=== PATIENT | female | born 1980 | race Caucasian/White ===

== ENCOUNTER 2023-03-31 06:27 | Emergency (ER) | payer OTHER ==
[2023-03-31 06:36] VITALS: BMI 28.3
[2023-03-31] MEDS ORDERED: ACETAMINOPHEN 1000 MG/100 ML BAG IVPB ONE (07:19)
[2023-03-31] MEDS ORDERED: LACTATED RINGERS SOLUTION 1000 ML INFUS.BAG IV ONE (07:19)
[2023-03-31] MEDS ORDERED: FAMOTIDINE 20 MG/50 ML IVPB 20 MG/50 ML MG IVPB ONE ×3 (07:20→08:00)
[2023-03-31] MEDS ORDERED: MAG HYDROX/AL HYDROX/SIMETH 30 ML UNIT-DOSE CUP PO ONE (07:21)
[2023-03-31] MEDS ORDERED: ACETAMINOPHEN INJECTION 100 ML IVPB ONE (08:00)
[2023-03-31] MEDS ORDERED: MAG HYDROX/AL HYDROX/SIMETH 30 ML UNIT-DOSE CUP ONE (08:00)
[2023-03-31 09:17] LABS: BASO % 0.2 % (0-2.0); EOS % 0.2 % (0-4.5); HEMATOCRIT 41.8 % (32.4-45.2); HEMOGLOBIN 14.3 GM/dL (10.7-15.3); MCHC 34.2 g/dl (32.0-36.0); MEAN CELL VOLUME 90.7 fl (80-96); MEAN PLT VOLUME 8.1 fl (7.5-11.1); MONO % 5.4 % (3.8-10.2); NEUT % 83.2 % (42.8-82.8); PLATELET COUNT 82 10^3/uL (134-434); RBC 4.62 M/mm3 (3.60-5.2); RDW 13.4 % (11.6-15.6); WHITE BLOOD COUNT 7.1 K/mm3 (4.0-10.0)
[2023-03-31 09:35] LABS: POTASSIUM 3.6 mmol/L (3.5-5.1)
[2023-03-31 09:37] LABS: BLOOD UREA NITROGEN 8.8 mg/dL (7-18); CALCIUM 7.4 mg/dL (8.5-10.1)
[2023-03-31 09:38] LABS: ALBUMIN 3.5 g/dl (3.4-5.0); MAGNESIUM 2.2 mg/dL (1.8-2.4)
[2023-03-31 09:40] LABS: PHOSPHOROUS 3.1 mg/dL (2.5-4.9)
[2023-03-31 09:41] LABS: CREATININE 0.7 mg/dL (0.55-1.3)
[2023-03-31 09:43] LABS: BILIRUBIN,TOTAL 0.6 mg/dL (0.2-1); TOT PROT 7.1 g/dl (6.4-8.2)
[2023-03-31] MEDS ORDERED: CALCIUM CARBONATE 650 MG TABLET PO ONE ×2 (09:53→09:55)
[2023-03-31 09:58] LABS: URINE APPEARANCE CLEAR; URINE BILIRUBIN NEGATIVE (NEGATIVE); URINE COLOR YELLOW; URINE GLUCOSE (UA) NEGATIVE (NEGATIVE); URINE KETONE NEGATIVE (NEGATIVE); URINE LEUK ESTERASE NEGATIVE (NEGATIVE); URINE NITRITE NEGATIVE (NEGATIVE); URINE PROTEIN NEGATIVE (NEGATIVE); URINE UROBILINOGEN 0.2 mg/dL (0.2-1.0)
[2023-03-31 10:12] LABS: PLATELET ESTIMATE DECREASED
[2023-03-31 10:56] LABS: POTASSIUM 3.4 mmol/L (3.5-5.1)
[2023-03-31 12:55] VITALS: BP 97/68; PULSE 79; RESP 18; TEMP 97
== END 2023-03-31 14:05 | disposition home or self-care (01) ==
LOC: JER 06:27
PROC: 3E033GC Introduction of Other Therapeutic Substance into Peripheral Vein, Percutaneous Approach (ICD-10-PCS; principal; 2023-03-31)
PROC: 3E033GC Introduction of Other Therapeutic Substance into Peripheral Vein, Percutaneous Approach (ICD-10-PCS; 2023-03-31)
DX: R10.84 Generalized abdominal pain (principal); R11.2 Nausea with vomiting, unspecified; R19.7 Diarrhea, unspecified; R25.2 Cramp and spasm
CPT/HCPCS: 36415; 74177-TC; 80053; 81003; 83690; 83735; 84100; 84132; 84439; 84443; 84481; 84703; 85025; 87086; 93005; 93010; 99285-25; Q9967